=== PATIENT | female | born 1995 | race African-American/Black ===

== ENCOUNTER 2016-12-05 16:21 | Emergency (ER) | payer OTHER ==
[2016-12-05 16:25] VITALS: BP 114/78; PULSE 108; TEMP 99.8; BMI 19.8
[2016-12-05] MEDS ORDERED: IBUPROFEN 600 MG TABLET (FP) PO ONE ×2 (16:45)
--- NOTE | 2016-12-05 16:46 | PDOC ---
History of Present Illness - General History Source: Patient Exam Limitations: No Limitations - History of Present Illness Initial Comments: 12/05/16 16:49 The patient is a 21 year old female with no significant past medical history, who presents to the ED with a sore throat since this morning. She states she has had heartburn since yesterday as well. She states she has had a difficulty swallowing since. She has not eaten anything all day secondary to her symptoms. She denies abdominal pain, subjective fever, chills, nausea, vomiting, diarrhea. Denies any sick contacts, recent travels. <Rip Dowling - Last Filed: 12/05/16 16:49> <Stan Escamilla - Last Filed: 12/05/16 17:41> - General Chief Complaint: Sore Throat Stated Complaint: SORE THROAT Time Seen by Provider: 12/05/16 16:36 Past History <Rip Dowling - Last Filed: 12/05/16 16:49> - Past Medical History Other medical history: DENIES - Surgical History Abdominal Surgery: Yes - Reproductive History (#): 0 Para: 0 Therapeutic (s) & number: No Spontaneous : 0 - Immunization History Immunization Up to Date: Yes - Psycho/Social/Smoking Cessation Hx Anxiety: No Suicidal Ideation: No Smoking Status: Yes Smoking History: Unknown if ever smoked Years of Tobacco Use: 3 Have you smoked in the past 12 months: No Number of Cigarettes Smoked Daily: 2 Hx Alcohol Use: Yes Drug/Substance Use Hx: Yes Substance Use Type: Alcohol, Marijuana <Stan Escamilla - Last Filed: 12/05/16 17:41> - Past Medical History Allergies/Adverse Reactions: Allergies Allergy/AdvReac Type Severity Reaction Status Date / Time No Known Allergies Allergy Verified 12/05/16 16:21 Home Medications: Ambulatory Orders Ibuprofen [Motrin -] 600 mg PO QID PRN #20 tablet 12/05/16 Review of Systems - Review of Systems Able to Perform ROS?: Yes Comments:: 12/05/16 16:49 GENERAL/CONSTITUTIONAL: No fever or chills. No weakness. HEAD, EYES, EARS, NOSE AND THROAT: + sore throat. No change in vision. No ear pain or discharge. CARDIOVASCULAR: + heartburn No chest pain or shortness of breath. RESPIRATORY: No cough, wheezing, or hemoptysis. GASTROINTESTINAL: No nausea, vomiting, diarrhea or constipation. GENITOURINARY: No dysuria, frequency, or change in urination. MUSCULOSKELETAL: No joint or muscle swelling or pain. No neck or back pain. SKIN: No rash NEUROLOGIC: No headache, vertigo, loss of consciousness, or change in strength/ sensation. ENDOCRINE: No increased thirst. No abnormal weight change. HEMATOLOGIC/LYMPHATIC: No anemia, easy bleeding, or history of blood clots. ALLERGIC/IMMUNOLOGIC: No hives or skin allergy. <Rip Dowling - Last Filed: 12/05/16 16:49> *Physical Exam - Vital Signs Last Vital Signs Temp Pulse Resp BP Pulse Ox 99.8 F H 108 H 16 114/78 100 12/05/16 16:21 12/05/16 16:21 12/05/16 16:21 12/05/16 16:21 12/05/16 16:21 - Physical Exam Comments: 12/05/16 16:50 GENERAL: Awake, alert, and fully oriented, in no acute distress HEAD: No signs of trauma EYES: PERRLA, EOMI, sclera anicteric, conjunctiva clear ENT: Auricles normal inspection, hearing grossly normal, nares patent, oropharynx is is mildly ejected without exudates, swelling, or mass. Dry mucosa NECK: Normal ROM, supple, no lymphadenopathy, JVD, or masses LUNGS: Breath sounds equal, clear to auscultation bilaterally. No wheezes, and no crackles HEART: 100, reuglar, no murmurs, rubs or gallops ABDOMEN: Soft, nontender, normoactive bowel sounds. No guarding, no rebound. No masses EXTREMITIES: Normal range of motion, no edema. No clubbing or cyanosis. No cords, erythema, or tenderness NEUROLOGICAL: Cranial nerves II through XII grossly intact. Normal speech, normal gait SKIN: Warm, Dry, normal turgor, no rashes or lesions noted. <Rip Dowling - Last Filed: 12/05/16 16:49> - Vital Signs Last Vital Signs Temp Pulse Resp BP Pulse Ox 99.8 F H 108 H 16 114/78 100 12/05/16 16:21 12/05/16 16:21 12/05/16 16:21 12/05/16 16:21 12/05/16 16:21 <Stan Escamilla - Last Filed: 12/05/16 17:41> ED Treatment Course - Medications Given in the ED: ED Medications Discontinued Medications Generic Name Dose Route Start Last Admin Trade Name Kaushikq PRN Reason Stop Dose Admin Ibuprofen 600 mg 12/05/16 16:45 12/05/16 16:47 Motrin - PO 12/05/16 16:46 600 mg ONCE ONE Administration <Rip Dowling - Last Filed: 12/05/16 16:49> Medical Decision Making - Medical Decision Making 12/05/16 17:40 Throat culture was negative for strep. No enlarged nodes to suggest mono Most likely viral pharyngitis. Feels better after Motrin. Continue Motrin and fluids and follow-up if no improvement 2-3 days. Fully ambulatory and in no significant discomfort upon discharge to follow-up as directed <Stan Escamilla - Last Filed: 12/05/16 17:41> *DC/Admit/Observation/Transfer - Attestations Scribe Attestion: 12/05/16 16:52 Documentation prepared by Rip Dowling, acting as biomedical engineering supervisor for Stan Martini MD. <Rip Dowling - Last Filed: 12/05/16 16:49> - Discharge Dispostion Admit: No <Stan Escamilla - Last Filed: 12/05/16 17:41> Diagnosis at time of Disposition: Acute viral pharyngitis - Discharge Dispostion Disposition: HOME Condition at time of disposition: Improved - Prescriptions Prescriptions: Ibuprofen [Motrin -] 600 mg PO QID PRN #20 tablet PRN Reason: Fever Or Pain - Referrals Referrals: Radha Meza MD [Staff Physician] - 3 days - Patient Instructions Printed Discharge Instructions: DI for Viral Pharyngitis - Post Discharge Activity Work/School Note: Back to School
== END 2016-12-05 17:51 | disposition home or self-care (01) ==
LOC: FER 16:21
DX: J02.8 Acute pharyngitis due to other specified organisms (principal); B97.89 Other viral agents as the cause of diseases classified elsewhere; Z72.0 Tobacco use
CPT/HCPCS: 87070; 87430; 99281-25

== ENCOUNTER 2016-12-23 20:38 | Emergency (ER) | payer OTHER ==
[2016-12-23 20:43] VITALS: BP 116/64; PULSE 78; TEMP 98.1; BMI 25.4
[2016-12-23] MEDS ORDERED: SODIUM CHLORIDE 1,000 ML IV STA (21:46)
--- NOTE | 2016-12-23 21:46 | PDOC ---
History of Present Illness - General Chief Complaint: Nausea/Vomiting Stated Complaint: N/V, ETOH Time Seen by Provider: 12/23/16 20:43 - History of Present Illness Initial Comments: This 21-year-old woman arrives in the emergency room with a history of epigastric pain, nausea/vomiting/headache. Patient states that she drank a large amount of alcohol last night while socializing (patient refuses to say how much alcohol she ingested). When she awakened today, she noted epigastric pain as well as nausea. Then she vomited several times. There was no red blood in the vomit but she did notice some brownish material. She also had generalized headache. She has not had blood or black stools. Patient states that in recent weeks she has had an increase in burning epigastric discomfort. No recent fever/chills/diarrhea. Past History - Past Medical History Allergies/Adverse Reactions: Allergies Allergy/AdvReac Type Severity Reaction Status Date / Time No Known Allergies Allergy Verified 12/23/16 21:57 Home Medications: Ambulatory Orders Control Pills 1 tab PO ASDIR 12/23/16 Famotidine [Pepcid -] 40 mg PO DAILY #20 tablet 12/24/16 Ondansetron [Zofran Odt -] 4 mg SL BID PRN #10 od.tablet 12/24/16 Other medical history: DENIES - Surgical History Abdominal Surgery: Yes - Reproductive History (#): 0 Para: 0 Therapeutic (s) & number: No Spontaneous : 0 - Immunization History Immunization Up to Date: Yes - Psycho/Social/Smoking Cessation Hx Anxiety: No Suicidal Ideation: No Smoking Status: Yes Smoking History: Never smoked Years of Tobacco Use: 3 Have you smoked in the past 12 months: No Number of Cigarettes Smoked Daily: 2 Information on smoking cessation initiated: No Hx Alcohol Use: (occasional) Drug/Substance Use Hx: Yes Substance Use Type: Alcohol, Marijuana Review of Systems - Review of Systems Able to Perform ROS?: Yes Comments:: 12 point review of systems is negative except for what is noted in the history of present illness *Physical Exam - Vital Signs Last Vital Signs Temp Pulse Resp BP Pulse Ox 98.1 F 78 18 116/64 100 12/23/16 20:38 12/23/16 20:38 12/23/16 20:38 12/23/16 20:38 12/23/16 20:38 - Physical Exam Comments: GENERAL: Young adult female, in mild distress secondary to nausea/headache HEAD: Normal with no signs of trauma. EYES: PERRLA, EOMI, sclera anicteric, conjunctiva clear. ENT: Ears normal, nares patent, oropharynx clear without exudates. Dry mucous membranes. NECK: Normal range of motion, supple without lymphadenopathy, JVD, or masses. LUNGS: Breath sounds equal, clear to auscultation bilaterally. No wheezes, and no crackles. HEART:Regular rate and rhythm, normal S1 and S2 without murmur, rub or gallop. ABDOMEN:.normal bowel sounds ; mild epigastric tenderness without guarding or rebound. No masses. No distention noted. EXTREMITIES: Normal range of motion, no edema. No clubbing or cyanosis. No erythema, or tenderness. NEUROLOGICAL: Cranial nerves II through XII grossly intact. Normal speech. No focal neurological deficits. MUSCULOSKELETAL: Back non-tender to palpation, no CVA tenderness SKIN: Warm, Dry, normal turgor, no rashes or lesions noted. ED Treatment Course - LABORATORY CBC & Chemistry Diagram: 12/23/16 21:53 12/23/16 21:53 Medical Decision Making - Medical Decision Making This 21-year-old woman presents with headache/epigastric pain and nausea/ vomiting after alcohol ingestion last night. Of note, the patient had some brownish material in her emesis. Exam as noted notable for dry mucous membranes and mild epigastric tenderness Patient given a liter normal saline IV as well as 4 mg Zofran IV. Laboratory evaluation essentially normal. Patient feels significantly better after IV hydration and IV Zofran. She still has some epigastric discomfort but nausea has resolved. Patient states that she feels she can take oral medication now and will be given Pepcid 20 mg by mouth. Patient states that her headache has nearly resolved Clinical presentation most consistent with acute gastritis secondary to alcohol ingestion. Since the patient noted an increase in epigastric discomfort prior to her alcohol ingestion last night. She may have an underlying gastritis. The patient will be given a prescription for Pepcid 40 mg to be used daily for the next few weeks. Meanwhile, she should follow-up with her general doctor and avoid alcohol ingestion. If she takes nonsteroidal anti-inflammatory medications for any reason, she should take with a full meal. She should return to the emergency room if she has severe epigastric pain or develops nausea/vomiting *DC/Admit/Observation/Transfer Diagnosis at time of Disposition: Gastritis Qualifiers: Gastritis type: unspecified gastritis Chronicity: acute Gastritis bleeding: without bleeding Qualified Code(s): K29.00 - Acute gastritis without bleeding - Discharge Dispostion Disposition: HOME Condition at time of disposition: Stable - Prescriptions Prescriptions: Famotidine [Pepcid -] 40 mg PO DAILY #20 tablet Ondansetron [Zofran Odt -] 4 mg SL BID PRN #10 od.tablet PRN Reason: Nausea - Referrals Referrals: Ramon Cortez MD [Primary Care Provider] - 1 week - Patient Instructions Printed Discharge Instructions: Gastritis Additional Instructions: Pepcid 40 mg daily for the next 2 weeks Zofran ODT 4mg up to twice a day as needed for nausea Light diet, advance diet as tolerated Eat frequent small meals Avoid alcohol Always take ibuprofen/naproxen with a meal Follow-up with Dr. Cortez within the next week Return to ER if you have severe pain or persistent vomiting
[2016-12-23] MEDS ORDERED: ONDANSETRON 4 MG/2 ML VIAL IVPB ONE (21:58)
[2016-12-23] MEDS ORDERED: ONDANSETRON 4 MG/2 ML VIAL ONE (21:59)
[2016-12-23 22:02] LABS: URINE APPEARANCE Clear; URINE BILIRUBIN Negative (NEGATIVE); URINE GLUCOSE (UA) Negative (NEGATIVE); URINE KETONE 4+ (NEGATIVE); URINE LEUK ESTERASE Negative (NEGATIVE); URINE NITRITE Negative (NEGATIVE); URINE UROBILINOGEN 0.2 E.U/dl (0.2-1.0)
[2016-12-23 22:03] LABS: URINE COLOR YELLOW; URINE PROTEIN 2+ (NEGATIVE)
[2016-12-23 22:04] LABS: URINE BLOOD 3 (NEGATIVE)
[2016-12-23 22:11] LABS: MCH 31.4 pg (25.7-33.7); MCHC 34.4 g/dl (32.0-36.0); MEAN CELL VOLUME 91.3 fl (80-96); MEAN PLT VOLUME 8.9 fl (7.5-11.1); PLATELET COUNT 330 K/MM3 (134-434); RDW 14.5 % (11.6-15.6); WHITE BLOOD COUNT 11.5 K/mm3 (4.0-10.8)
[2016-12-23 22:16] LABS: ALBUMIN 4.4 g/dl (3.5-5.0); ALK PHOS 39 U/L (32-92); ANION GAP 9 (8-16); BILIRUBIN,TOTAL 0.8 mg/dl (0.2-1.0); CALCIUM 8.8 mg/dl (8.4-10.2); CO2 21 mmol/L (22-28); CREATININE 0.7 mg/dl (0.6-1.3); GLUCOSE,RANDOM 75 mg/dl (74-106); SGOT/AST 31 U/L (10-42); SGPT/ALT 16 U/L (10-40); TOT PROT 7.7 g/dl (6.4-8.3)
[2016-12-23 22:34] LABS: URINE BACTERIA FEW /hpf (NEGATIVE)
[2016-12-23] MEDS ORDERED: FAMOTIDINE 20 MG TABLET PO ONE (23:59)
[2016-12-24] MEDS ORDERED: FAMOTIDINE 20 MG TABLET ONE (00:04)
== END 2016-12-24 00:10 | disposition home or self-care (01) ==
LOC: FER 20:38
PROC: 3E033GC Introduction of Other Therapeutic Substance into Peripheral Vein, Percutaneous Approach (ICD-10-PCS; principal; 2016-12-23)
PROC: 3E0337Z Introduction of Electrolytic and Water Balance Substance into Peripheral Vein, Percutaneous Approach (ICD-10-PCS; 2016-12-23)
DX: K29.00 Acute gastritis without bleeding (principal)
CPT/HCPCS: 36415; 80053; 81003; 81015; 84703; 85025; 99284-25

== ENCOUNTER 2017-03-28 04:04 | Emergency (ER) | payer OTHER ==
--- NOTE | 2017-03-28 04:08 | PDOC ---
History of Present Illness - General Chief Complaint: Vaginal Bleeding Stated Complaint: VAG BLEED Time Seen by Provider: 03/28/17 04:08 - History of Present Illness Initial Comments: This 22-year-old woman with a history of acne, possible PCOS and anemia presents with nearly 2 week history of vaginal bleeding. The patient was started in December on oral contraceptives (iron-supplemented) prior to start of Accutane treatment of her acne. Patient states that she was started on the OC by her charge nurse. She had normal menstrual cycles for 2 months. On March 16, reportedly 2 weeks after normal menstrual period, she had onset of vaginal bleeding. 4 days later, she had appointment with her gym instructor. At that time, it was noted that this was menstrual bleeding that was out of cycle but no further evaluation performed. No follow-up was scheduled. Over the last 10 days, she has continued to have her normal heavy menstrual bleeding with some clots. This is not unusual for the patient. She is also had some intermittent cramping. She is states that she is somewhat lightheaded but has not had any syncope or shortness of breath. She is not reconsulted her gym instructor, charge nurse or general medical doctor. Past History - Past Medical History Allergies/Adverse Reactions: Allergies Allergy/AdvReac Type Severity Reaction Status Date / Time No Known Allergies Allergy Verified 12/23/16 21:57 Home Medications: Ambulatory Orders Ibuprofen [Motrin -] 600 mg PO TID PRN #21 tablet 03/28/17 - Surgical History Abdominal Surgery: Yes - Reproductive History (#): 0 Para: 0 Therapeutic (s) & number: No Spontaneous : 0 - Immunization History Immunization Up to Date: Yes - Suicide/Smoking/Psychosocial Hx Smoking Status: Yes Smoking History: Never smoked Years of Tobacco Use: 3 Have you smoked in the past 12 months: No Number of Cigarettes Smoked Daily: 2 Hx Alcohol Use: (occasional) Drug/Substance Use Hx: Yes Substance Use Type: Alcohol, Marijuana Review of Systems - Review of Systems Able to Perform ROS?: Yes Comments:: 12 point review of systems is negative except for what is noted in the history of present illness *Physical Exam - Physical Exam Comments: GENERAL: Young adult female, alert and oriented 3, no acute distress HEAD: Normal with no signs of trauma. EYES: PERRLA, EOMI, sclera anicteric, conjunctiva clear. ENT: Ears normal, nares patent, oropharynx clear without exudates. Dry mucous membranes. NECK: Normal range of motion, supple without lymphadenopathy, JVD, or masses. LUNGS: Breath sounds equal, clear to auscultation bilaterally. No wheezes, and no crackles. HEART:Regular rate and rhythm, normal S1 and S2 without murmur, rub or gallop. ABDOMEN:.normal bowel sounds No guarding or rebound.No masses No distention. Minimal suprapubic tenderness EXTREMITIES: Normal range of motion, no edema. No clubbing or cyanosis. No erythema, or tenderness. NEUROLOGICAL: Cranial nerves II through XII grossly intact. Normal speech. No focal neurological deficits. MUSCULOSKELETAL: Back non-tender to palpation, no CVA tenderness SKIN: Warm, Dry, normal turgor, no rashes or lesions noted. Progress Note - Progress Note Progress Note: Young adult female presents with 2 week history of vaginal breakthrough bleeding a few months after starting oral contraceptives prior to Accutane course for acne. Patient had had 2 normal menstrual cycles after the start of the OC. The amount of bleeding is her usual heavy menstrual flow. She has had some lightheadedness but no evidence of symptoms suggestive of severe anemia. Vital signs are normal without tachycardia or hypotension. Although her conjunctiva are slightly pale, mucous membranes are normal coloration and lungs are clear. She has no cardiac murmur. There is minimal suprapubic tenderness but no peritoneal signs. Further change in oral contraceptive is up to her gym instructor; it was explained to the patient and her mother that there are numerous oral contraceptives with different balances of hormones. She should consult her gym instructor regarding a change in the oral contraceptive now that she has been bleeding for 2 weeks. Meanwhile, she should supplement her diet with leafy green vegetables/red meat. If symptoms of lightheadedness persist, she should consult her general medical doctor. She should return to the emergency room if she has severe lightheadedness or weakness *DC/Admit/Observation/Transfer Diagnosis at time of Disposition: Menorrhagia Qualifiers: Menorrahagia type: with irregular cycle Qualified Code(s): N92.1 - Excessive and frequent menstruation with irregular cycle - Discharge Dispostion Disposition: HOME Condition at time of disposition: Stable - Prescriptions Prescriptions: Ibuprofen [Motrin -] 600 mg PO TID PRN #21 tablet PRN Reason: Pain - Referrals Referrals: Ramon Cortez MD [Staff Physician] - - Patient Instructions Printed Discharge Instructions: Heavy Menstrual Bleeding Additional Instructions: Call your gym instructor in the a.m. to make follow-up appointment within the next 48 hours Eat regular meals, including red meat, as discussed Follow-up with your PMD, Dr. Cortez regarding evaluation of anemia Motrin 600 mg up to 3 times a day (always with food) as needed for cramping Return to ER if you have severe lightheadedness/weakness
[2017-03-28 04:10] VITALS: BP 117/83; PULSE 70; TEMP 97.4; BMI 25.0
[2017-03-28] MEDS ORDERED: IBUPROFEN 600 MG TABLET (FP) PO ONE ×2 (04:33→04:39)
== END 2017-03-28 04:42 | disposition home or self-care (01) ==
LOC: FER 04:04
DX: N92.1 Excessive and frequent menstruation with irregular cycle (principal); E28.2 Polycystic ovarian syndrome
CPT/HCPCS: 99282-25

== ENCOUNTER 2018-04-12 19:20 | Emergency (ER) | payer OTHER ==
[2018-04-12 19:25] VITALS: BP 123/78; PULSE 73; TEMP 98.6; BMI 23.3
--- NOTE | 2018-04-12 20:12 | PDOC ---
History of Present Illness - General History Source: Patient Exam Limitations: No Limitations - History of Present Illness Initial Comments: 04/12/18 20:37 The patient is a 23 year old female with significant past medical history of Lichens Simplex, who presents to the emergency room today complaining of vaginal bumps that she noticed approximately 3 days ago. The patient states that she felt a bump on lateral external labia about 3 days ago, then noticed 3 additional small bumps which appeared afterwards. The bumps are not painful or itchy. 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 She notes these bumps are not typical of the presentation that she experiences with the Lichens Simplex. Denies vaginal pain, discharge, itching, foul odor. Denies fever, chills, nausea , vomiting. Denies pelvic pain. Allergies: NKA PCP: Dr. Ramon Cortez <Mona Duffy - Last Filed: 04/12/18 20:36> <Nereyda Farfan - Last Filed: 04/13/18 05:02> - General Chief Complaint: Vaginal Sxs Stated Complaint: BUMPS NEAR VAGINA Time Seen by Provider: 04/12/18 19:33 Past History <Mona Duffy - Last Filed: 04/12/18 20:36> - Past Medical History COPD: No Other medical history: CHRONIC SIMPLEX SKIN CONDITION - Surgical History Abdominal Surgery: Yes - Reproductive History (#): 0 Para: 0 Therapeutic (s) & number: No Spontaneous : 0 - Immunization History Immunization Up to Date: Yes - Suicide/Smoking/Psychosocial Hx Smoking Status: Yes Smoking History: Never smoked Years of Tobacco Use: 3 Have you smoked in the past 12 months: No Number of Cigarettes Smoked Daily: 2 Hx Alcohol Use: (occasional) Drug/Substance Use Hx: Yes Substance Use Type: Alcohol, Marijuana <Nereyda Farfan - Last Filed: 04/13/18 05:02> - Past Medical History Allergies/Adverse Reactions: Allergies Allergy/AdvReac Type Severity Reaction Status Date / Time No Known Allergies Allergy Verified 12/23/16 21:57 Home Medications: Ambulatory Orders NK [No Known Home Medication] 04/12/18 Review of Systems - Review of Systems Able to Perform ROS?: Yes Comments:: 04/12/18 20:37 GENERAL/CONSTITUTIONAL: No fever or chills. No weakness. HEAD, EYES, EARS, NOSE AND THROAT: No change in vision. No ear pain or discharge. No sore throat. CARDIOVASCULAR: No chest pain or shortness of breath. RESPIRATORY: No cough, wheezing, or hemoptysis. GASTROINTESTINAL: No nausea, vomiting, diarrhea or constipation. GENITOURINARY: No dysuria, frequency, or change in urination. No discharge. MUSCULOSKELETAL: No joint or muscle swelling or pain. No neck or back pain. SKIN: +vaginal bumps x3days NEUROLOGIC: No headache, vertigo, loss of consciousness, or change in strength/ sensation. ENDOCRINE: No increased thirst. No abnormal weight change. HEMATOLOGIC/LYMPHATIC: No anemia, easy bleeding, or history of blood clots. ALLERGIC/IMMUNOLOGIC: No hives or skin allergy. <Mona Duffy - Last Filed: 04/12/18 20:36> *Physical Exam - Vital Signs Last Vital Signs Temp Pulse Resp BP Pulse Ox 98.6 F 73 14 123/78 100 04/12/18 19:21 04/12/18 19:21 04/12/18 19:21 04/12/18 19:21 04/12/18 19:21 - Physical Exam Comments: 04/12/18 20:37 GENERAL: Awake, alert, and fully oriented, in no acute distress HEAD: No signs of trauma EYES: PERRLA, EOMI, sclera anicteric, conjunctiva clear External genitalia: left external labia had .5cm x .5cm nontender firm mass on the lateral aspect. Nonfluctuant, no discharge. Several punctate healing abrasions just proximal to the mass. No discharge and fluctuance associated with the punctate abrasions. No other lymphadenopathy or abnormalities present. NEUROLOGICAL: Cranial nerves II through XII grossly intact. Normal speech, normal gait <Mona Duffy - Last Filed: 04/12/18 20:36> - Vital Signs Last Vital Signs Temp Pulse Resp BP Pulse Ox 98.6 F 73 14 123/78 100 04/12/18 19:21 04/12/18 19:21 04/12/18 19:21 04/12/18 19:21 04/12/18 19:21 <Nereyda Farfan - Last Filed: 04/13/18 05:02> Progress Note - Progress Note Progress Note: Documentation has been prepared under my direction and personally reviewed by me in its entirety. I attest that this documented accurately reflects all work, treatment, procedures and medical decision making performed by me. <Nereyda Farfan - Last Filed: 04/13/18 05:02> Medical Decision Making - Medical Decision Making As noted above, this 23-year-old woman presents with a few day history of nontender lump that she felt the lateral aspect of the left external labia; this was located on the outside (hairbearing, not mucous membrane) of the labia. Also, the patient had some healing, punctate abrasions of the hairbearing area of the proximal labia externa. Patient states that this was not injured during shaving or other skincare procedure. In any case, abrasions do not appear to be infected and have no discharge/edema associated with them. The lump that the patient felt was most likely a reactive lymph node. Patient was reassured and advised to follow-up with her cell biology scientist in a few days for reassessment of the area <Nereyda Farfan - Last Filed: 04/13/18 05:02> *DC/Admit/Observation/Transfer - Attestations Scribe Attestion: 04/12/18 20:38 Documentation prepared by OLIVER Anne, acting as medical records tech for Nereyda Farfan MD. <Mona Duffy - Last Filed: 04/12/18 20:36> <Nereyda Farfan - Last Filed: 04/13/18 05:02> Diagnosis at time of Disposition: Reactive lymphadenopathy - Discharge Dispostion Disposition: HOME Condition at time of disposition: Stable - Referrals Referrals: Ramon Cortez MD [Primary Care Provider] - - Patient Instructions Printed Discharge Instructions: DI for Abrasion Additional Instructions: can use steroid cream on skin as previously arrange followup with your cell biology scientist within the next 3-4 days return to ER if you have increase in pain/swelling or develop discharge in area - Post Discharge Activity
== END 2018-04-12 20:40 | disposition home or self-care (01) ==
LOC: FER 19:20
DX: N89.8 Other specified noninflammatory disorders of vagina (principal); R59.1 Generalized enlarged lymph nodes; B00.9 Herpesviral infection, unspecified; L28.0 Lichen simplex chronicus
CPT/HCPCS: 99281-25

== ENCOUNTER 2018-11-01 01:45 | Emergency (ER) | payer OTHER ==
[2018-11-01] MEDS ORDERED: TETRACAINE 0.5% OPHTH SOLN 2 ML BOTTLE ONE (01:52)
[2018-11-01] MEDS ORDERED: FLUORESCEIN NA 1 EA STRIP ONE (01:52)
[2018-11-01 01:53] VITALS: BP 141/97; PULSE 114; TEMP 98.1; BMI 23.3
[2018-11-01] MEDS ORDERED: TOBRA 0.3%/DEXAMETH 0.1% OPHTHALMIC SUSP 2.5 ML BTL OD STA (02:03)
--- NOTE | 2018-11-01 02:03 | PDOC ---
History of Present Illness - General Chief Complaint: Eye Problem Stated Complaint: RT EYE PAIN Time Seen by Provider: 11/01/18 01:46 History Source: Patient Exam Limitations: No Limitations - History of Present Illness Initial Comments: 11/01/18 02:05 This is a 23-year-old female who comes in complaining of pain in her right eye. Patient has a history of ALLERGIES and was rubbing her right eye when she thinks she may have scratched her cornea. Patient otherwise has no complaints. Allergies: as per nursing notes Past Medical History: none Social history: Lives with family. No smoking. No alcohol. No illicit drugs. Surgical history: None General: No fevers or chills, no weakness, no weight loss HEENT: No change in vision. No sore throat,. No ear pain, right eye pain CardioVascular: no chest discomfort. No shortness of breath Respiratory:No cough, or wheezing. Gastrointestinal: no nausea, vomiting, diarrhea or constipation, No rectal bleeding Genitourinary: No dysuria, hematuria, or frequency Musculoskeletal: No joint or muscle pain or swelling Neurologic: No headache, vertigo, dizziness or loss of consciousness Psychiatric: nor depression Skin: No rashes or easy bruising Endocrine: no increased thirst or abnormal weight change Allergic: no skin or latex allergy All other systems reviewed and normal GENERAL: The patient is awake, alert, and fully oriented, in no acute distress. HEAD: Normal with no signs of trauma. EYES: Pupils equal, round and reactive to light, extraocular movements intact, sclera anicteric, conjunctiva slightly injected, on fluorescein staining there is a small area on the cornea with increased uptake consistent with an abrasion. EXTREMITIES:atraumatic, Normal range of motion, no edema. NEUROLOGICAL: Normal speech, normal gait. PSYCH: Normal mood, normal affect. SKIN: Warm, Dry, normal turgor, no rashes or lesions noted. Assessment and plan: This is a 23-year-old female with right eye pain secondary to a small corneal abrasion. Patient started on TobraDex as she does have seasonal ALLERGIES that have been bothering her eyes. Patient also told to take Claritin or Giulia for her ALLERGIES. Past History - Past Medical History Allergies/Adverse Reactions: Allergies Allergy/AdvReac Type Severity Reaction Status Date / Time No Known Allergies Allergy Verified 12/23/16 21:57 Home Medications: Ambulatory Orders Norgestimate-Ethinyl Estradiol [Tri-Linyah] 1 each PO DAILY 11/01/18 COPD: No - Surgical History Abdominal Surgery: Yes - Reproductive History (#): 0 Para: 0 Therapeutic (s) & number: No Spontaneous : 0 - Immunization History Immunization Up to Date: Yes - Suicide/Smoking/Psychosocial Hx Smoking Status: Yes Smoking History: Current some day smoker Years of Tobacco Use: 3 Have you smoked in the past 12 months: No Number of Cigarettes Smoked Daily: 2 Information on smoking cessation initiated: Yes Hx Alcohol Use: (occasional) Drug/Substance Use Hx: Yes Substance Use Type: Alcohol, Marijuana *Physical Exam - Vital Signs Last Vital Signs Temp Pulse Resp BP Pulse Ox 98.1 F 114 H 16 141/97 97 11/01/18 01:49 11/01/18 01:49 11/01/18 01:49 11/01/18 01:49 11/01/18 01:49 *DC/Admit/Observation/Transfer Diagnosis at time of Disposition: Corneal abrasion, right Qualifiers: Encounter type: initial encounter Qualified Code(s): S05.01XA - Injury of conjunctiva and corneal abrasion without foreign body, right eye, initial encounter - Discharge Dispostion Disposition: HOME Condition at time of disposition: Stable Decision to Admit order: No - Referrals Referrals: Ramon Cortez MD [Primary Care Provider] - - Patient Instructions Additional Instructions: Do not wear your contact lenses for at least 2 weeks. If you still have any discomfort see your eye doctor on Saturday. Put 1 drop of the medicine we gave you in your right I every 4 hours while awake for the next 7 days. Purchase [id number] Giulia or Claritin and take it as directed on the bottle for your ALLERGIES Return to the emergency department immediately with ANY new, persistent or worsening symptoms. Continue any medications as previously prescribed by your physician. You should follow up with your primary doctor as soon as possible regarding today's emergency department visit. . Please make sure your doctor reviews the results of your emergency evaluation. Thank you for coming to the Emergency Department today for your care. It was a pleasure to see you today. Please note that your evaluation is INCOMPLETE until you follow-up with your doctor. - Post Discharge Activity
[2018-11-01] MEDS ORDERED: TOBRA 0.3%/DEXAMETH 0.1% OPHTHALMIC SUSP 2.5 ML BTL ONE (02:05)
== END 2018-11-01 02:13 | disposition home or self-care (01) ==
LOC: FER 01:45
DX: S05.01XA Injury of conjunctiva and corneal abrasion without foreign body, right eye, initial encounter (principal); Z72.0 Tobacco use; J30.2 Other seasonal allergic rhinitis
CPT/HCPCS: 99281-25

== ENCOUNTER 2020-07-04 09:09 | Emergency (ER) | payer OTHER ==
[2020-07-04 09:14] VITALS: BP 118/81; PULSE 76; TEMP 98.4; BMI 22.0
== END 2020-07-04 12:35 | disposition home or self-care (01) ==
LOC: FER 09:09
DX: N83.202 Unspecified ovarian cyst, left side (principal)
CPT/HCPCS: 36415; 76830-TC; 76856-TC; 81003; 84703; 87086; 87491; 87591; 99284-25